=== PATIENT | male | born 1950 | race Caucasian/White ===

== ENCOUNTER 2016-12-08 06:08 | Emergency (ER) | payer OTHER ==
[~2016-12-08 06:08] MED LIST: ALBUTEROL HFA60 DOSE IN; ALBUTEROL SUL0.083 % IN; ASPIRIN EC LOW81 MG PO; ATENOLOL50 MG PO; ENDOCET1 TA3 PO; IRON PO; METFORMIN HCL500 MG PO; PREDNISONE10 MG PO; SUPER B COMPLEX PO
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
--- NOTE | 2016-12-08 09:54 | ED CLINICAL REPORT ---
Clinical Report - Physicians/Mid Levels [facility] [address] [place] [address] 12/08/2016 6:09 Patient: KATIE HERNÁNDEZ Arrived- By private vehicle. Historian- patient. CPT: ER phys charges level 4 plus (#[id number]). EKG interpretation (#[id number]). HISTORY OF PRESENT ILLNESS Chief Complaint: CHEST PAIN. At its maximum, severity described as moderate. When seen in the E.D., it was gone. Modifying factors. Not worsened by anything. Not relieved by anything. This started today and is still present but is better now. It was abrupt in onset and has been constant but is not gone now. Onset during driving. It is described as sharp and it is described as located in the left chest area. No radiation. The patient has had difficulty breathing and nausea. No vomiting or diaphoresis. No additional chest pain. (Reports no hemoptysis, unilateral leg swelling, recent trauma.). Similar symptoms previously: Several times. ( has not sought medical attention for these symptoms. Reports no history of cardiac disease. Reports he has not had any cardiologyevaluation.). Recent medical care: Not recently seen/assessed. REVIEW OF SYSTEMS No fever, chills, fainting episodes, sore throat or blurred vision. No abdominal pain, black stools, difficulty with urination, skin rash or enlarged lymph nodes. No joint pain. All systems otherwise negative, except as recorded above. PAST HISTORY See nurses notes. Denies the following risk factors for DVT/PE - history of DVT and pulmonary embolism, recent surgery, recent [place] and congestive heart failure. Denies the following risk factors for DVT/PE - cancer, clotting disorder, estrogens, immobility and advanced in age. Denies the following risk factors for DVT/PE - vena cava filter. SOCIAL HISTORY Never smoker. No alcohol use or drug use. No recent travel. Is a local resident. FAMILY HISTORY No history of heart disease. No family history of premature onset heart disease. ADDITIONAL NOTES The nursing notes have been reviewed. PHYSICAL EXAM Vital Signs: 12/08/2016 06:12 BP: 157/76. HR: 58. RR: 16. O2 saturation: 97%. Pain level now: 0/10. Blood pressure normal. Oxygen saturation normal. Appearance: Alert. Oriented X3. No acute distress. Eyes: Pupils equal, round and reactive to light. Eyes normal inspection. ENT: Ears normal. Nose normal. Pharynx normal. Neck: Normal inspection. Neck supple. CVS: Normal heart rate and rhythm. Heart sounds normal. Pulses normal. Respiratory: No respiratory distress. Breath sounds normal. Chest nontender. Abdomen: Soft and nontender. Bowel sounds normal. No mass. Back: Normal external inspection. Skin: Skin warm and dry. Normal skin color. No rash. Normal skin turgor. Extremities: Extremities exhibit normal ROM. No lower extremity edema. Neuro: Oriented X 3. No motor deficit. No sensory deficit. Reflexes normal. LABS, X-RAYS, AND EKG EKG: Narrow-complex bradycardia (56). Sinus bradycardia. Normal P waves. Normal PRESTON. Normal QRS complex. Normal axis. Normal ST and T waves, QT and QTc. The study has been interpreted contemporaneously by me. The study has been independently viewed by me. The EKG appears to be a good tracing. Laboratory Tests: CBC w Diff: (JAKI: 12/08/2016 06:18) ( MsgRcvd 12/08/2016 06:47) Final results Test Result Flag Units (Reference) WHITE BLOOD COUNT 11.8 H K/uL (4.5-11.5) RED BLOOD COUNT 5.14 M/uL (4.50-5.90) HEMOGLOBIN 16.0 gm/dL (13.5-17.5) HEMATOCRIT 48.8 % (41.0-53.0) MEAN CELL VOLUME 95 fL (80-100) MEAN CORPUSCULAR HGB 31 pg (26-34) MEAN CORPUSCULAR HGB CONC 33 g/dL (31-37) RED CELL DISTRIBUTION WIDTH 13.0 % (11.6-14.8) PLATELET COUNT 234 K/uL (150-400) NEUTROPHIL % 55.9 % (50-75) LYMPH % 32.0 % (25-40) MONO % 8.9 % (3-14) EOSINOPHIL % 2.4 % (0-4) BASOPHIL % 0.8 % (0-2) [id number]: (JAKI: 12/08/2016 06:18) ( [facility] [place] 06[facility]54) Final results Test Result Flag Units (Reference) D-DIMER QUANTITATIVE 0.28 ug/mLFEU (0.27-0.52) The primary value of this quantitative assay relates toits negative predictive value (i.e. exclusion) of pulmonaryembolism/deep vein thrombosis/DIC.Elevated levels of d-dimer may also occur with:, age, cancer, inflammation, liver disease,post-op, infection, hematoma, coronary disease, peripheralarteriopathy, bleeding disorders and thrombolytic treatment.Results should be correlated with other clinical andradiological data.Testing Methodology: Latex Immunoassay BNP: (JAKI: 12/08/2016 06:18) ( [facility] [place] 12/08/2016 07:06) Final results Test Result Flag Units (Reference) B-TYPE NATRIURETIC PEPTIDE 33.6 pg/ml (5-100) CMP: (JAKI: 12/08/2016 06:18) ( [facility] [place] 12/08/2016 07:06) Final results Test Result Flag Units (Reference) GLUCOSE 111 H mg/dL (70-110) BUN 13 mg/dL (7-18) CREATININE 0.9 mg/dL (0.6-1.3) Estimated GFR >60 mL/min Estimated GFR- >60 mL/min Note: Persistent reduction over 3 months in eGFR<60 mL/min/1.73 m2 defines CKD. Patients with eGFR values>=60 mL/min/1.73 m2 may also have CKD if evidence ofpersistent proteinuria. Additional information may be foundat www.kidney.org. SODIUM 139 mmol/L (136-145) POTASSIUM 4.4 mmol/L (3.5-5.1) CHLORIDE 101 mmol/L (98-107) CARBON DIOXIDE 30 mmol/L (21-32) CALCIUM 8.3 L mg/dL (8.5-10.1) TOTAL PROTEIN 7.1 g/dL (6.4-8.2) ALBUMIN 3.6 g/dL (3.3-5.0) BILIRUBIN, TOTAL 0.6 mg/dL (0.0-1.0) ALKALINE PHOSPHATASE 46 U/L (46-116) AST (SGOT) 18 U/L (15-37) ALT (SGPT) 34 U/L (12-78) TROPONIN I 0.09 ng/mL (0.00-1.5) TROPONIN REFERENCE RANGE:<0.1 NEGATIVE0.1-1.5 INDETERMINANT>1.5 POSITIVE . PROGRESS AND PROCEDURES Course of Care: 09:56 12/08/16. patient reexamined. Patient indicates that he now has a cervical radiculopathy pain that is radiating from his neck into his left shoulder and the chest area that is in the area of pain today. He's had neck problems for some time is due for an injection because of neck pain. Turning and moving his neck causes the reproduction of the pain is in here for today. His cardiac workup is negative including 2 troponins. He'll follow-up with his physicians for neck injection and ongoing therapy for that. Patient/family counseled. Disposition: Discharged. Condition: stable and improved. CLINICAL IMPRESSION Shoulder and upper CP due to cervical radiculopathy. INSTRUCTIONS Rest. (Use soft collar at night. See your PCP in 1 week.). Warnings: Further evaluation is necessary. GENERAL WARNINGS: Return or contact your physician immediately if your condition worsens or changes unexpectedly, if not improving as expected, or if other problems arise. Your Current Medications: CONTINUE TAKING THE FOLLOWING MEDICATIONS: 2L NC oxygen at night *. Atenolol Oral : 50 mg daily. MetFORMIN HCl Oral : 500 mg 2x a day, pre-diabetic. Oxycodone-Acetaminophen Oral : 10/325 mg 3x a day. PredniSONE Oral : 10 mg daily, Last: yesterday, prn. Proventil HFA Inhalation : prn. Follow-up: Follow up with your doctor. Call for the next available appointment. Reason for referral: neck injection. Understanding of the discharge instructions verbalized by patient. (Electronically signed by Florencio Grewal MD 12/10/2016 20:50)
--- NOTE | 2016-12-08 09:54 | ED ORDER SUMMARY ---
..... Patient: KATIE HERNÁNDEZ OrderSheet [facility] VisitID: [id number] [place] [address] 66y, M Registration Date/Time: 12/08/2016 ORDER SHEET Weight: 124.7 kg (stated) Allergies: ACB's, SYDNI Inhibitors, ARB's, Cephalosporins, Irbesartan-, Keflex GENERAL ORDERS: EKG - ER Stat (06:15 12/08/2016 Luis Lopes) (Ack 6:25 [email or web address] ER Firmware Engineer) (6:28 Francie) Chest 1V Urgent (06:40 12/08/2016 Luis Lopes) (Ack 6:42 CHagerty ER Firmware Engineer) (6:48 CHagerty ER Firmware Engineer) Roving Can Tender (Continuous) (CP) (06:40 12/08/2016 Luis Lopes) (6:44 RCollier R.N.) CBC w Diff Urgent (06:40 12/08/2016 Luis Lopes) (Ack 6:42 CHagerty ER Firmware Engineer) (6:44 RCollier R.N.) CMP Urgent (06:40 12/08/2016 Luis Lopes) (Ack 6:42 CHagerty ER Firmware Engineer) (6:44 RCollier R.N.) D-Dimer Urgent (06:40 12/08/2016 Luis Lopes) (Ack 6:42 CHagerty ER Firmware Engineer) (6:44 RCollier R.N.) Troponin-I Urgent (06:40 12/08/2016 Luis Lopes) (Ack 6:42 CHagerty ER Firmware Engineer) (6:44 RCollier R.N.) Pulse oximeter (06:40 12/08/2016 Luis Lopes) (6:44 RCollier R.N.) BNP Urgent (06:42 12/08/2016 Luis Lopes) (6:48 CHagerty ER Firmware Engineer) Troponin-I (draw 2 hours after first troponin drawn) Urgent (07:43 12/08/2016 Luis Lopes) (Ack 7:44 LMuller) (8:49 LMuller) MEDICATION ORDERS: IV FLUIDS: IV Saline Lock (06:40 12/08/2016 Luis Lopes) (Ack 6:44 Monae Chan) (7:15 Aime Chan) ORDER SHEET NOTES: [Electronically signed by Rsoi Villalta R.N. (18:38 12/08/2016)] [Electronically signed by Florencio Grewal MD (20:50 12/10/2016)] [Electronically locked/signed by Rosi Villalta R.N. (18:38 12/08/2016)]
--- NOTE | 2016-12-08 09:54 | ED CLINICAL REPORT ---
Clinical Report - Physicians/Mid Levels [facility] [address] [place] [address] 12/08/2016 6:09 Patient: KATIE HERNÁNDEZ Arrived- By private vehicle. Historian- patient. CPT: ER phys charges level 4 plus (#[id number]). EKG interpretation (#[id number]). HISTORY OF PRESENT ILLNESS Chief Complaint: CHEST PAIN. At its maximum, severity described as moderate. When seen in the E.D., it was gone. Modifying factors. Not worsened by anything. Not relieved by anything. This started today and is still present but is better now. It was abrupt in onset and has been constant but is not gone now. Onset during driving. It is described as sharp and it is described as located in the left chest area. No radiation. The patient has had difficulty breathing and nausea. No vomiting or diaphoresis. No additional chest pain. (Reports no hemoptysis, unilateral leg swelling, recent trauma.). Similar symptoms previously: Several times. ( has not sought medical attention for these symptoms. Reports no history of cardiac disease. Reports he has not had any cardiologyevaluation.). Recent medical care: Not recently seen/assessed. REVIEW OF SYSTEMS No fever, chills, fainting episodes, sore throat or blurred vision. No abdominal pain, black stools, difficulty with urination, skin rash or enlarged lymph nodes. No joint pain. All systems otherwise negative, except as recorded above. PAST HISTORY See nurses notes. Denies the following risk factors for DVT/PE - history of DVT and pulmonary embolism, recent surgery, recent [place] and congestive heart failure. Denies the following risk factors for DVT/PE - cancer, clotting disorder, estrogens, immobility and advanced in age. Denies the following risk factors for DVT/PE - vena cava filter. SOCIAL HISTORY Never smoker. No alcohol use or drug use. No recent travel. Is a local resident. FAMILY HISTORY No history of heart disease. No family history of premature onset heart disease. ADDITIONAL NOTES The nursing notes have been reviewed. PHYSICAL EXAM Vital Signs: 12/08/2016 06:12 BP: 157/76. HR: 58. RR: 16. O2 saturation: 97%. Pain level now: 0/10. Blood pressure normal. Oxygen saturation normal. Appearance: Alert. Oriented X3. No acute distress. Eyes: Pupils equal, round and reactive to light. Eyes normal inspection. ENT: Ears normal. Nose normal. Pharynx normal. Neck: Normal inspection. Neck supple. CVS: Normal heart rate and rhythm. Heart sounds normal. Pulses normal. Respiratory: No respiratory distress. Breath sounds normal. Chest nontender. Abdomen: Soft and nontender. Bowel sounds normal. No mass. Back: Normal external inspection. Skin: Skin warm and dry. Normal skin color. No rash. Normal skin turgor. Extremities: Extremities exhibit normal ROM. No lower extremity edema. Neuro: Oriented X 3. No motor deficit. No sensory deficit. Reflexes normal. LABS, X-RAYS, AND EKG EKG: Narrow-complex bradycardia (56). Sinus bradycardia. Normal P waves. Normal PRESTON. Normal QRS complex. Normal axis. Normal ST and T waves, QT and QTc. The study has been interpreted contemporaneously by me. The study has been independently viewed by me. The EKG appears to be a good tracing. Laboratory Tests: CBC w Diff: (JAKI: 12/08/2016 06:18) ( MsgRcvd 12/08/2016 06:47) Final results Test Result Flag Units (Reference) WHITE BLOOD COUNT 11.8 H K/uL (4.5-11.5) RED BLOOD COUNT 5.14 M/uL (4.50-5.90) HEMOGLOBIN 16.0 gm/dL (13.5-17.5) HEMATOCRIT 48.8 % (41.0-53.0) MEAN CELL VOLUME 95 fL (80-100) MEAN CORPUSCULAR HGB 31 pg (26-34) MEAN CORPUSCULAR HGB CONC 33 g/dL (31-37) RED CELL DISTRIBUTION WIDTH 13.0 % (11.6-14.8) PLATELET COUNT 234 K/uL (150-400) NEUTROPHIL % 55.9 % (50-75) LYMPH % 32.0 % (25-40) MONO % 8.9 % (3-14) EOSINOPHIL % 2.4 % (0-4) BASOPHIL % 0.8 % (0-2) [id number]: (JAKI: 12/08/2016 06:18) ( [facility] 12/08/2016 06:54) Final results Test Result Flag Units (Reference) D-DIMER QUANTITATIVE 0.28 ug/mLFEU (0.27-0.52) The primary value of this quantitative assay relates toits negative predictive value (i.e. exclusion) of pulmonaryembolism/deep vein thrombosis/DIC.Elevated levels of d-dimer may also occur with:, age, cancer, inflammation, liver disease,post-op, infection, hematoma, coronary disease, peripheralarteriopathy, bleeding disorders and thrombolytic treatment.Results should be correlated with other clinical andradiological data.Testing Methodology: Latex Immunoassay BNP: (JAKI: 12/08/2016 06:18) ( [facility] 12/08/2016 07:06) Final results Test Result Flag Units (Reference) B-TYPE NATRIURETIC PEPTIDE 33.6 pg/ml (5-100) CMP: (JAIK: 12/08/2016 06:18) ( [facility] 12/08/2016 07:06) Final results Test Result Flag Units (Reference) GLUCOSE 111 H mg/dL (70-110) BUN 13 mg/dL (7-18) CREATININE 0.9 mg/dL (0.6-1.3) Estimated GFR >60 mL/min Estimated GFR- >60 mL/min Note: Persistent reduction over 3 months in eGFR<60 mL/min/1.73 m2 defines CKD. Patients with eGFR values>=60 mL/min/1.73 m2 may also have CKD if evidence ofpersistent proteinuria. Additional information may be foundat www.kidney.org. SODIUM 139 mmol/L (136-145) POTASSIUM 4.4 mmol/L (3.5-5.1) CHLORIDE 101 mmol/L (98-107) CARBON DIOXIDE 30 mmol/L (21-32) CALCIUM 8.3 L mg/dL (8.5-10.1) TOTAL PROTEIN 7.1 g/dL (6.4-8.2) ALBUMIN 3.6 g/dL (3.3-5.0) BILIRUBIN, TOTAL 0.6 mg/dL (0.0-1.0) ALKALINE PHOSPHATASE 46 U/L (46-116) AST (SGOT) 18 U/L (15-37) ALT (SGPT) 34 U/L (12-78) TROPONIN I 0.09 ng/mL (0.00-1.5) TROPONIN REFERENCE RANGE:<0.1 NEGATIVE0.1-1.5 INDETERMINANT>1.5 POSITIVE . PROGRESS AND PROCEDURES Course of Care: 09:56 12/08/16. patient reexamined. Patient indicates that he now has a cervical radiculopathy pain that is radiating from his neck into his left shoulder and the chest area that is in the area of pain today. He's had neck problems for some time is due for an injection because of neck pain. Turning and moving his neck causes the reproduction of the pain is in here for today. His cardiac workup is negative including 2 troponins. He'll follow-up with his physicians for neck injection and ongoing therapy for that. Patient/family counseled. Disposition: Discharged. Condition: stable and improved. CLINICAL IMPRESSION Shoulder and upper CP due to cervical radiculopathy. INSTRUCTIONS Rest. (Use soft collar at night. See your PCP in 1 week.). Warnings: Further evaluation is necessary. GENERAL WARNINGS: Return or contact your physician immediately if your condition worsens or changes unexpectedly, if not improving as expected, or if other problems arise. Your Current Medications: CONTINUE TAKING THE FOLLOWING MEDICATIONS: 2L NC oxygen at night *. Atenolol Oral : 50 mg daily. MetFORMIN HCl Oral : 500 mg 2x a day, pre-diabetic. Oxycodone-Acetaminophen Oral : 10/325 mg 3x a day. PredniSONE Oral : 10 mg daily, Last: yesterday, prn. Proventil HFA Inhalation : prn. Follow-up: Follow up with your doctor. Call for the next available appointment. Reason for referral: neck injection. Understanding of the discharge instructions verbalized by patient. (Electronically signed by Florencio Grewal MD 12/10/2016 20:50)
--- NOTE | 2016-12-08 09:54 | ED ORDER SUMMARY ---
..... Patient: KATIE EHRNÁNDEZ OrderSheet [facility] VisitID: [id number] [place] [address] 66y, M Registration Date/Time: 12/08/2016 ORDER SHEET Weight: 124.7 kg (stated) Allergies: ACB's, SYDNI Inhibitors, ARB's, Cephalosporins, Irbesartan-, Keflex GENERAL ORDERS: EKG - ER Stat (06:15 12/08/2016 Luis Lopes) (Ack 6:25 ADC Therapeuticserty ER V Belt Skiver) (6:28 Francie) Chest 1V Urgent (06:40 12/08/2016 Luis Lopes) (Ack 6:42 CHagerty ER V Belt Skiver) (6:48 CHagerty ER V Belt Skiver) Retail Sales Associate Seasonal (Continuous) (CP) (06:40 12/08/2016 Luis Lopes) (6:44 RCollier R.N.) CBC w Diff Urgent (06:40 12/08/2016 Luis Lopes) (Ack 6:42 CHagerty ER V Belt Skiver) (6:44 RCollier R.N.) CMP Urgent (06:40 12/08/2016 Luis Lopes) (Ack 6:42 CHagerty ER V Belt Skiver) (6:44 RCollier R.N.) D-Dimer Urgent (06:40 12/08/2016 Luis Lopes) (Ack 6:42 CHagerty ER V Belt Skiver) (6:44 RCollier R.N.) Troponin-I Urgent (06:40 12/08/2016 Luis Lopes) (Ack 6:42 CHagerty ER V Belt Skiver) (6:44 RCollier R.N.) Pulse oximeter (06:40 12/08/2016 Luis Lopes) (6:44 RCollier R.N.) BNP Urgent (06:42 12/08/2016 Luis Lopes) (6:48 CHagerty ER V Belt Skiver) Troponin-I (draw 2 hours after first troponin drawn) Urgent (07:43 12/08/2016 Luis Lopes) (Ack 7:44 LMuller) (8:49 LMuller) MEDICATION ORDERS: IV FLUIDS: IV Saline Lock (06:40 12/08/2016 Luis Lopes) (Ack 6:44 Monae Chan) (7:15 Aime Chan) ORDER SHEET NOTES: [Electronically signed by Rosi Villalta R.N. (18:38 12/08/2016)] [Electronically signed by Florencio Grewal MD (20:50 12/10/2016)] [Electronically locked/signed by Rosi Villalta R.N. (18:38 12/08/2016)]
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
--- NOTE | 2016-12-10 20:51 | ED MAR SUMMARY ---
..... Medication Administration Record [facility] [address] [place] [address] Patient: KATIE HERNÁNDEZ Visit ID: [id number] 66y, M Weight: 124.7 kg Height/Length: 70 in BMI: 39.4 ALLERGIES: ACB's, SYDNI Inhibitors, ARB's, Cephalosporins, Irbesartan-, Keflex
--- NOTE | 2016-12-10 20:51 | ED MED RECONCILIATION SUMMARY ---
Patient: KATIE HERNÁNDEZ Medication Reconciliation Report [facility] VisitID: [id number] [place] [address] 66y, M Registration Date/Time: 12/08/2016 Weight: 124.7 kg Height/Length: 70 in. BMI: 39.4 ALLERGIES: ACB's, SYDNI Inhibitors, ARB's, Cephalosporins, Irbesartan-, Keflex The patient's Home Medications are listed below: CONTINUE TAKING THE FOLLOWING MEDICATIONS: 2L NC oxygen at night Atenolol Oral 50 mg, daily MetFORMIN HCl Oral 500 mg, 2x a day, pre-diabetic Oxycodone-Acetaminophen Oral 10/325 mg, 3x a day PredniSONE Oral 10 mg, daily, last dose: yesterday Proventil HFA Inhalation The source(s) of the original Home Medication information: Not obtained. The following Medications were given to the patient in the Emergency Department: None. The following Medications were prescribed to the patient: None.
--- NOTE | 2016-12-10 20:51 | ED MAR SUMMARY ---
..... Medication Administration Record [facility] [address] [place] [address] Patient: KATIE HERNÁNDEZ Visit ID: [id number] 66y, M Weight: 124.7 kg Height/Length: 70 in BMI: 39.4 ALLERGIES: ACB's, SYDNI Inhibitors, ARB's, Cephalosporins, Irbesartan-, Keflex
--- NOTE | 2016-12-10 20:51 | ED DISCHARGE INSTRUCTIONS ---
Patient: KATIE HERNÁNDEZ General Instructions [facility] VisitID: [id number] [place] [address] 66y, M Registration Date/Time: 12/08/2016 Shoulder and upper CP due to cervical radiculopathy. INSTRUCTIONS Rest. (Use soft collar at night. See your PCP in 1 week.). Warnings: Further evaluation is necessary. GENERAL WARNINGS: Return or contact your physician immediately if your condition worsens or changes unexpectedly, if not improving as expected, or if other problems arise. Your Current Medications: CONTINUE TAKING THE FOLLOWING MEDICATIONS: 2L NC oxygen at night *. Atenolol Oral : 50 mg daily. MetFORMIN HCl Oral : 500 mg 2x a day, pre-diabetic. Oxycodone-Acetaminophen Oral : 10/325 mg 3x a day. PredniSONE Oral : 10 mg daily, Last: yesterday, prn. Proventil HFA Inhalation : prn. Follow-up: Follow up with your doctor. Call for the next available appointment. Reason for referral: neck injection. Understanding of the discharge instructions verbalized by patient. Rest. (Electronically signed by Florencio Grewal MD 12/10/2016 20:50)
--- NOTE | 2016-12-10 20:51 | ED MED RECONCILIATION SUMMARY ---
Patient: KATIE HERNÁNDEZ Medication Reconciliation Report [facility] VisitID: [id number] [place] [address] 66y, M Registration Date/Time: 12/08/2016 Weight: 124.7 kg Height/Length: 70 in. BMI: 39.4 ALLERGIES: ACB's, SYDNI Inhibitors, ARB's, Cephalosporins, Irbesartan-, Keflex The patient's Home Medications are listed below: CONTINUE TAKING THE FOLLOWING MEDICATIONS: 2L NC oxygen at night Atenolol Oral 50 mg, daily MetFORMIN HCl Oral 500 mg, 2x a day, pre-diabetic Oxycodone-Acetaminophen Oral 10/325 mg, 3x a day PredniSONE Oral 10 mg, daily, last dose: yesterday Proventil HFA Inhalation The source(s) of the original Home Medication information: Not obtained. The following Medications were given to the patient in the Emergency Department: None. The following Medications were prescribed to the patient: None.
--- NOTE | 2016-12-10 20:51 | ED DISCHARGE INSTRUCTIONS ---
Patient: KATIE HERNÁNDEZ General Instructions [facility] VisitID: [id number] [place] [address] 66y, M Registration Date/Time: 12/08/2016 Shoulder and upper CP due to cervical radiculopathy. INSTRUCTIONS Rest. (Use soft collar at night. See your PCP in 1 week.). Warnings: Further evaluation is necessary. GENERAL WARNINGS: Return or contact your physician immediately if your condition worsens or changes unexpectedly, if not improving as expected, or if other problems arise. Your Current Medications: CONTINUE TAKING THE FOLLOWING MEDICATIONS: 2L NC oxygen at night *. Atenolol Oral : 50 mg daily. MetFORMIN HCl Oral : 500 mg 2x a day, pre-diabetic. Oxycodone-Acetaminophen Oral : 10/325 mg 3x a day. PredniSONE Oral : 10 mg daily, Last: yesterday, prn. Proventil HFA Inhalation : prn. Follow-up: Follow up with your doctor. Call for the next available appointment. Reason for referral: neck injection. Understanding of the discharge instructions verbalized by patient. Rest. (Electronically signed by Florencio Grewal MD 12/10/2016 20:50)
== END 2016-12-08 10:18 | disposition home or self-care (01) ==
LOC: ED SRH 06:08
DX: R07.9 Chest pain, unspecified (principal); M54.12 Radiculopathy, cervical region; F17.210 Nicotine dependence, cigarettes, uncomplicated; E11.9 Type 2 diabetes mellitus without complications; I10 Essential (primary) hypertension; Z79.84 Long term (current) use of oral hypoglycemic drugs; Z79.899 Other long term (current) drug therapy; Z88.8 Allergy status to other drugs, medicaments and biological substances
CPT/HCPCS: 90074; 90100; 90616; 91320; 91556; 95059